=== PATIENT | male | born 1965 | race Caucasian/White ===

== ENCOUNTER 2021-02-17 12:30 | Outpatient (RCR) | payer OTHER, SELFPAY ==
--- NOTE | 2021-01-06 14:49 | OTOPEVAL ---
OCCUPATIONAL THERAPY EVALUATION REPORT 01/06/21 Brandon referred to outpatient OT following left MCP joint injury. Assessment today shows an intact ED tendon and no signs of extensor tendon subluxing over the MCP joint. It is recommended that the patient continue conservative treatment - immobilization, daily gentle ROM, and restricted use x8 weeks. He is to continue to wear the dorsal blocking splint for another 2 weeks, then progress down to hayley straps. Plan to have him re-assessed in 6 weeks to assess healing and progress to strengthening if indicated. No follow up sessions have been scheduled in the meantime as the patient has an excellent understanding of all the material discussed today. Thank you for referring Brandon Espino II to [facility].? The patient is scheduled to be seen for hand therapy?follow up on Feb 17, 2021. No treatment scheduled in the meantime, however will allow for treatments on an as needed basis, 0-1x/week for 6 weeks. Please review, sign, date and return this plan of care ANISHA. I agree with and certify that the following plan of care is medically necessary. Referring Physician Date Referring Provider: DO Wilmar GrewalOT Outpatient Evaluation Start: 01/06/21 13:34 Therapy Assessment Status Assessment Status Assessment Status Evaluation Evaluation Information Problem Diagnosis Pain in left finger Onset 12/18/20 Subjective Information Patient flicked his left Query Text:As Reported By Patient/ middle finger (forced resisted Family extension) and immediately felt the MCP joint dislocate. He is wearing a dorsal blocking splint to inhibit hyperextension of the MCP joint. Has been wearing the splint x2 weeks. He performs gentle ROM to the hand daily. Prior Level of Function Activity Level (Last 3 Months) Occupation Musician - card player Hand Dominance Right Pain Assessment Timing of Pain Assessment Timing of Pain Assessment Assessment Self Report Self Report Pain Level 0 Pain Score Pain Score 0: Self Report Upper Extremity Range of Motion Finger Range of Motion Left Finger Range of Motion Comments Active ROM of the left hand is WNL. Patient is able to initiate and sustain full MCP extension with no signs/ symptoms of the extensor tendon subluxing. Patient has good flexibility with no joint stiffness. Full fist - intact Hook fist - intact Lumbricals/intrinsic plus positioning - intact Some reports of mild pain with
--- NOTE | 2021-02-17 13:12 | OTOPEVAL ---
OCCUPATIONAL THERAPY RE-EVALUATION AND DISCHARGE SUMMARY 02/17/21 OT re-evaluation completed this date. Patient's hand appears to be well healed with no signs of ED subluxation over the MCP joint. He is able to complete resistive gripping and finger extension without pain. He has been instructed in progressive strengthening and has verbalized a good plan with returning to play the guitar. No further skilled OT indicated at this time. Thank you for referring Brandon Espino II to [facility]. Please review, sign, date and return this D/C Note ANISHA. I agree with and certify that the following plan of care is medically necessary. Referring Physician Date Referring Provider: Melody Banks DO *OT Outpatient Re-Evaluation Start: 01/06/21 13:34 Problem Diagnosis Pain in left finger Onset 12/18/20 Subjective Information Patient is 9 weeks post injury Query Text:As Reported By Patient/ . He has worn an MCP extension Family blocking splint and tapered down to just hayley taping. Today he presents with no pain with active ROM or resisted middle finger MCP extension. He states he has been able to play the guitar again, but has to play for short lengths of time before his hand gets tired. He has been working on increasing his endurance with this. Pain Assessment Timing of Pain Assessment Timing of Pain Assessment Assessment Self Report Self Report Pain Level 0 Pain Score Pain Score 0: Self Report Upper Extremity Range of Motion Finger Range of Motion Left Finger Range of Motion Comments Active ROM of the left hand is WNL. Patient is able to initiate and sustain full MCP extension with no signs/ symptoms of the extensor tendon subluxing. Patient has good flexibility with no joint stiffness. Full fist - intact Hook fist - intact Lumbricals/intrinsic plus positioning - intact Hand Purse Seining Hand/Pinch Strength Assessment Hand Right Purse Seining Hand Strength (lbs) 125 Lateral Pinch Strength (lbs) 18 Palmar Pinch Strength (lbs) 15.33 Left Purse Seining Hand Strength (lbs) 60 Lateral Pinch Strength (lbs) 12.33 Palmar Pinch Strength (lbs) 8.66 Upper Extremity Exercise Finger/Thumb Exercise Right Other Finger/Thumb Exercises Issued strengthening HEP with
== END 2021-02-18 09:30 | disposition home or self-care (01) ==
LOC: ANHOT 12:30
DX: M79.645 Pain in left finger(s) (principal)
CPT/HCPCS: 97110; 97166